=== PATIENT | female | born 1985 | race American Indian/Alaskan Native ===

== ENCOUNTER 2019-11-03 00:19 | Emergency (ER) | payer SELFPAY ==
[2019-11-03] MEDS ORDERED: ONDANSETRON 4 MG ODT TAB PO ONE (01:33)
[2019-11-03] MEDS ORDERED: ONDANSETRON 4 MG ODT TAB ONE (01:36)
[2019-11-03] MEDS ORDERED: ONDANSETRON 4 MG/2 ML INJ ONE (03:16)
[2019-11-03] MEDS ORDERED: SODIUM CHLORIDE 0.9% 1000 ML 1,000 ML ONE (03:18)
[2019-11-03 03:29] LABS: Hematocrit 39.3 % (30.3-42.9); Hemoglobin 13.9 gm/dl (10.1-14.3); Mean Corpuscular HGB Conc 35 % (30-34); Mean Corpuscular Volume 71 fl (79-97); Platelet Count 349 K/mm3 (140-440); Red Blood Count 5.53 M/mm3 (3.65-5.03); Red Cell Distribution Width 13.4 % (13.2-15.2)
[2019-11-03 03:53] LABS: BUN/Creatinine Ratio 18; Blood Urea Nitrogen 14 mg/dL (7-17); Calcium 9.7 mg/dL (8.4-10.2); Hemolysis Index 22
[2019-11-03] MEDS ORDERED: SODIUM CHLORIDE 0.9% 1000 ML 1,000 ML IV ONE (03:58)
[2019-11-03] MEDS ORDERED: ONDANSETRON 4 MG/2 ML INJ IV ONE (03:59)
--- NOTE | 2019-11-03 05:57 | Emergency Department Report ---
ED N/V/D HPI - General Chief complaint: Nausea/Vomiting/Diarrhea Stated complaint: 7 WKS PREG/GENERAL WEAKNESS Time Seen by Provider: 11/03/19 04:59 Source: patient Mode of arrival: Ambulatory Limitations: No Limitations - History of Present Illness Initial comments: 33-year-old female who is currently about 7 weeks based on last menstrual cycle which was 08/27/2019 presents to the ER today complaining of nausea and vomiting. Patient states that she has been having intermittent episodes of nausea and vomiting for the past 2 weeks. She reports associated generalized weakness and chills. She denies fever. She denies any associated abdominal pain or any vaginal symptoms. She denies any diarrhea or UTI symptoms. She is AB0. She reports similar symptoms during her first . At the time she was living in [facility] and would get IV fludis and meds. She does not recall anything being prescribed for home. She does not currently have OBGYN. She reports no other symptoms at this time. MD complaint: nausea, vomiting -: week(s) (2) - Related Data Previous Rx's Medication Instructions Recorded Last Taken Type Ondansetron [Zofran Odt] 4 mg PO Q8HR PRN #15 tab.rapdis 11/03/19 Unknown Rx Allergies Allergy/AdvReac Type Severity Reaction Status Date / Time No Known Allergies Allergy Verified 11/03/19 01:36 ED Review of Systems ROS: Stated complaint: 7 WKS PREG/GENERAL WEAKNESS Other details as noted in HPI Comment: All other systems reviewed and negative Constitutional: chills. denies: diaphoresis, fever ENT: denies: ear pain, throat pain, dental pain Respiratory: denies: cough Cardiovascular: denies: chest pain Gastrointestinal: nausea, vomiting. denies: abdominal pain, diarrhea Genitourinary: denies: urgency, dysuria, frequency, hematuria Musculoskeletal: denies: arthralgia, myalgia Neurological: weakness. denies: headache, numbness, paresthesias, abnormal gait, vertigo ED Past Medical Hx - Past Medical History Previous Medical History?: No - Surgical History Past Surgical History?: No - Social History Smoking Status: Never Smoker - Medications Home Medications: Home Medications Medication Instructions Recorded Confirmed Last Taken Type Ondansetron [Zofran Odt] 4 mg PO Q8HR PRN #15 tab.rapdis 11/03/19 Unknown Rx ED Physical Exam - General Limitations: No Limitations General appearance: alert, in no apparent distress - Head Head exam: Present: atraumatic, normocephalic, normal inspection - Eye Eye exam: Present: normal appearance, PERRL, EOMI Pupils: Present: normal accommodation - ENT ENT exam: Present: normal exam, normal orophraynx, mucous membranes moist - Neck Neck exam: Present: normal inspection, full ROM. Absent: meningismus - Respiratory Respiratory exam: Present: normal lung sounds bilaterally. Absent: respiratory distress - Cardiovascular Cardiovascular Exam: Present: tachycardia - GI/Abdominal GI/Abdominal exam: Present: soft. Absent: distended, tenderness - Neurological Exam Neurological exam: Present: alert, oriented X3, CN II-XII intact, normal gait - Psychiatric Psychiatric exam: Present: normal affect, normal mood - Skin Skin exam: Present: intact ED Course Vital Signs 11/03/19 00:47 Temperature 99.4 F Pulse Rate 117 H Respiratory 18 Rate Blood Pressure 119/84 O2 Sat by Pulse 100 Oximetry ED Medical Decision Making - Lab Data Result diagrams: 11/03/19 03:03 11/03/19 03:03 - Medical Decision Making 0605 --patient reports feeling better after Zofran and IV fluids. He has not vomited since she has been in the room. Patient currently resting comfortably. She does not appear to be in any distress. She does not appear toxic or ill appearing. No signs of significant dehydration. Labs reviewed, and so far CBC, CMP unremarkable. Urinalysis pending. Patient denies any vaginal symptoms, a bdominal pain, and on exam she has no abdominal tenderness therefore OB ultrasound not indicated at this time. Given patient's improvement of her nausea and vomiting, will try PO fluid challenge. 0646 -- Patient tolerated by mouth fluids. No vomiting. Her analysis negative for UTI. She will be given a prescription for Zofran. She'll be given referral to [facility]. She is condition is stable, no further workup or admission indicated at this time. She is appropriate for discharge. Critical care attestation.: If time is entered above; I have spent that time in minutes in the direct care of this critically ill patient, excluding procedure time. ED Disposition Clinical Impression: Nausea and vomiting during Disposition: DC- TO HOME OR SELFCARE Is pt being admited?: No Does the pt Need Aspirin: No Condition: Stable Instructions: (ED), Acute Nausea and Vomiting (ED) Prescriptions: Ondansetron [Zofran Odt] 4 mg PO Q8HR PRN #15 tab.rapdis PRN Reason: Vomiting Referrals: LOLY TREVINO MD [Staff Physician] - 3-5 Days Time of Disposition: 06:43
[2019-11-03 06:13] LABS: Bilirubin,Urine NEG (Negative); Blood,Urine NEG (Negative); Color,Urine Amber (Yellow); Mucus,Urine 3+ /HPF
[2019-11-03 06:53] VITALS: BP 117/78
== END 2019-11-03 06:54 | disposition home or self-care (01) ==
LOC: ED 00:19
DX: O21.8 Other vomiting complicating pregnancy (principal); Z3A.01 Less than 8 weeks gestation of pregnancy
CPT/HCPCS: 36415; 80048; 81001; 83690; 84702; 85027; 96361; 96374; 99283; J2405; J7030; Q0162